=== PATIENT | male | born 1940 | race Caucasian/White ===

== ENCOUNTER 2020-02-27 20:58 | Emergency (ER) | payer OTHER ==
[2020-02-27] MEDS ORDERED: NA CHLORIDE 0.9% 500 ML ONE (22:03)
[2020-02-27 22:27] LABS: Absolute Lymphocytes (CBC) 3.5 K/uL (0.7-4.9); Basophils % 0.3 % (0-1.3); Hematocrit 34.5 % (39.6-49.0); Lymphocytes % 21.9 % (15.3-44.8); MPV 8.3 fL (7.6-11.3); RBC Red Blood Cell Count 4.02 M/uL (4.33-5.43)
--- NOTE | 2020-02-28 00:16 | ER ---
Nurse's Notes [facility] Name: Christopher Cano Age: 80 yrs Sex: Male : 1940 Arrival Date: 02/27/2020 Time: 21:02 Bed 19 Private MD: Diagnosis: Fever, unspecified Presentation: 02/26 21:09 Chief complaint: Patient states: "I am having a slight pain and I was running a slight jd3 fever. I took Tylenol and I feel better already. I am feeling better now, but I figured I would get checked out anyway.". Coronavirus screen: Proceed with normal triage. Patient denies a cough. Patient denies shortness of breath or difficulty breathing. Patient reports a measured and/or subjective temperature greater than 100.4F. Patient denies travel on a cruise ship or to a country the [facility] currently lists as an affected area. Patient denies contact with known and/or suspected case of COVID-19. Ebola Screen: Patient negative for fever greater than or equal to 101.5 degrees Fahrenheit, and additional compatible Ebola Virus Disease symptoms. Initial Sepsis Screen: Does the patient meet any 2 criteria? No. Patient's initial sepsis screen is negative. Does the patient have a suspected source of infection? No. Patient's initial sepsis screen is negative. Risk Assessment: Do you want to hurt yourself or someone else? Patient reports no desire to harm self or others. Onset of symptoms was February 27, 2020. 21:09 Method Of Arrival: Ambulatory jd3 21:09 Acuity: IVANIA 3 jd3 Historical: - Allergies: 21:13 No Known Allergies; jd3 - Home Meds: 21:13 warfarin 5 mg Oral tab [Active]; furosemide 20 mg Oral tab [Active]; losartan 50 mg jd3 oral tab [Active]; - PMHx: 21:13 heart problem; jd3 - PSHx: 21:13 Heart Surgery; Carpal Tunnel Repair; jd3 - Immunization history:: Adult Immunizations up to date. - Social history:: Smoking status: Patient denies any tobacco usage or history of. Screenin:58 Abuse screen: Denies threats or abuse. Nutritional screening: No deficits noted. jd3 Tuberculosis screening: No symptoms or risk factors identified. Fall Risk Ambulatory Aid- None/Bed Rest/Nurse Assist (0 pts). Gait- Normal/Bed Rest/Wheelchair (0 pts) Mental Status- Oriented to own ability (0 pts). Total Simental Fall Scale indicates No Risk (0-24 pts). Assessment: 21:56 General: Appears in no apparent distress. comfortable, Behavior is calm, cooperative, jd3 appropriate for age. Pain: Complains of pain in left lower quadrant Quality of pain is described as aching. Neuro: Level of Consciousness is awake, alert, obeys commands, Oriented to person, place, time, situation. Cardiovascular: Denies chest pain, Capillary refill < 3 seconds Patient's skin is warm and dry. Respiratory: Airway is patent Respiratory effort is even, unlabored, Respiratory pattern is regular, symmetrical, Denies cough, shortness of breath. GI: Abdomen is round non-distended, Abd is soft and non tender X 4 quads. Reports constipation, Patient currently denies diarrhea, nausea, vomiting. : No signs and/or symptoms were reported regarding the genitourinary system. EENT: No signs and/or symptoms were reported regarding the EENT system. Derm: Skin is intact, Skin is dry, Skin is normal, Skin temperature is warm. Musculoskeletal: Circulation, motion, and sensation intact. Range of motion: intact in all extremities. 23:20 Reassessment: Patient appears in no apparent distress at this time. No changes from jd3 previously documented assessment. Patient and/or family updated on plan of care and expected duration. Pain level reassessed. Patient is alert, oriented x 3, equal unlabored respirations, skin warm/dry/pink. 02/27 00:21 Reassessment: Patient appears in no apparent distress at this time. Patient and/or jd3 family updated on plan of care and expected duration. Pain level reassessed. Patient is alert, oriented x 3, equal unlabored respirations, skin warm/dry/pink. pt refused urinalysis Patient states feeling better. Vital Signs: 02/26 21:08 BP 156 / 71; Pulse 99; Resp 18 S; Temp 99.9(TE); Pulse Ox 97% on R/A; Weight 78.47 kg jd3 (R); Height 5 ft. 8 in. (172.72 cm) (R); Pain 3/10; 23:21 BP 146 / 85; Pulse 91; Resp 17 S; Temp 98.5(O); Pulse Ox 100% on R/A; jd3 21:08 Body Mass Index 26.30 (78.47 kg, 172.72 cm) jd3 ED Course: 21:02 Patient arrived in ED. bp1 21:11 Triage completed. jd3 21:13 Arm band placed on. jd3 21:28 Emelyn De Souza FNP-C [facility]. kb 21:28 John Pantoja MD is Attending Physician. kb 21:51 Roddy German RN is Primary Nurse. jd3 21:58 Patient has correct armband on for positive identification. Bed in low position. Call j light in reach. Side rails up X 1. Pulse ox on. NIBP on. 22:13 Inserted saline lock: 20 gauge in right antecubital area, using aseptic technique. jd3 Blood collected. 23:50 CT Abd/Pelvis - IV Contrast Only In Process Unspecified. EDMS 07 00:22 No provider procedures requiring assistance completed. IV discontinued, intact, jd3 bleeding controlled, No redness/swelling at site. Pressure dressing applied. Administered Medications: 02/26 22:20 Drug: NS 0.9% 500 ml Route: IV; Rate: bolus; Site: right antecubital; jd3 23:20 Follow up: Response: No adverse reaction; IV Status: Completed infusion; IV Intake: jd3 500ml Intake: 23:20 IV: 500ml; Total: 500ml. jd3 Outcome: 02/27 00:16 Discharge ordered by . kb 00:22 Discharged to home ambulatory. jd3 00:22 Condition: stable 00:22 Discharge instructions given to patient, Instructed on discharge instructions, follow up and referral plans. Demonstrated understanding of instructions, follow-up care. 00:22 Patient left the ED. jd3 Signatures: Dispatcher [employer] EDAZ Emelyn De Souza FNP-C FNP-Ckb Davies, Jonathon, RN RN j Snow Urrutia bp1 Corrections: (The following items were deleted from the chart) 02/26 23:30 23:30 Response: No adverse reaction; IV Status: Completed infusion; IV Intake: 500ml jd3jd3
--- NOTE | 2020-02-28 00:16 | EDPHYS ---
Physician Documentation [facility] Name: Christopher Cano Age: 80 yrs Sex: Male : 1940 Arrival Date: 02/27/2020 Time: 21:02 Bed 19 Private MD: ED Physician John Pantoja HPI: 02/26 23:49 This 80 yrs old Male presents to ER via Ambulatory with complaints of kb Headache, Fever. 23:49 The patient reports fever, that was measured at 102 degrees Fahrenheit, with an kb emergency department temperature of 99 degrees Fahrenheit. Onset: The symptoms/episode began/occurred today. Modifying factors: there are no obvious modifying factors. Associated signs and symptoms: Pertinent positives: abdominal pain, headache. Severity of symptoms: At their worst the symptoms were moderate in the emergency department the symptoms have improved. The patient has not experienced similar symptoms in the past. The patient has not recently seen a physician. Pt reports he had a slight headache with fever of 102, took tylenol and now fever is down and headache is gone. States he has had LLQ for a couple of days as well. Historical: - Allergies: 21:13 No Known Allergies; jd3 - Home Meds: 21:13 warfarin 5 mg Oral tab [Active]; furosemide 20 mg Oral tab [Active]; losartan 50 mg jd3 oral tab [Active]; - PMHx: 21:13 heart problem; jd3 - PSHx: 21:13 Heart Surgery; Carpal Tunnel Repair; jd3 - Immunization history:: Adult Immunizations up to date. - Social history:: Smoking status: Patient denies any tobacco usage or history of. ROS: 23:48 Cardiovascular: Negative for chest pain, palpitations, and edema, Respiratory: Negative kb for shortness of breath, cough, wheezing, and pleuritic chest pain, MS/Extremity: Negative for injury and deformity, Skin: Negative for injury, rash, and discoloration, Neuro: Negative for headache, weakness, numbness, tingling, and seizure. 23:48 Constitutional: Positive for fever, Negative for body aches, chills, fatigue, malaise, poor PO intake, weight loss. 23:48 Abdomen/GI: Positive for abdominal pain, Negative for nausea, vomiting, and diarrhea. Exam: 23:48 Constitutional: This is a well developed, well nourished patient who is awake, alert, kb and in no acute distress. Head/Face: Normocephalic, atraumatic. Chest/axilla: Normal chest wall appearance and motion. Nontender with no deformity. No lesions are appreciated. Cardiovascular: Regular rate and rhythm with a normal S1 and S2. No gallops, murmurs, or rubs. Normal PMI, no JVD. No pulse deficits. Respiratory: Lungs have equal breath sounds bilaterally, clear to auscultation and percussion. No rales, rhonchi or wheezes noted. No increased work of breathing, no retractions or nasal flaring. Back: No spinal tenderness. No costovertebral tenderness. Full range of motion. Skin: Warm, dry with normal turgor. Normal color with no rashes, no lesions, and no evidence of cellulitis. MS/ Extremity: Pulses equal, no cyanosis. Neurovascular intact. Full, normal range of motion. Neuro: Awake and alert, GCS 15, oriented to person, place, time, and situation. Cranial nerves II-XII grossly intact. Motor strength 5/5 in all extremities. Sensory grossly intact. Cerebellar exam normal. Normal gait. 23:48 Abdomen/GI: Inspection: abdomen appears normal, Bowel sounds: normal, in all quadrants, Palpation: soft, in all quadrants, mild abdominal tenderness, in the left lower quadrant. Vital Signs: 21:08 BP 156 / 71; Pulse 99; Resp 18 S; Temp 99.9(TE); Pulse Ox 97% on R/A; Weight 78.47 kg jd3 (R); Height 5 ft. 8 in. (172.72 cm) (R); Pain 3/10; 23:21 BP 146 / 85; Pulse 91; Resp 17 S; Temp 98.5(O); Pulse Ox 100% on R/A; jd3 21:08 Body Mass Index 26.30 (78.47 kg, 172.72 cm) jd3 MDM: 21:35 Patient medically screened. kb 23:45 Data reviewed: vital signs, nurses notes. Data interpreted: Pulse oximetry: on room air kb is 100 %. Interpretation: normal. 02/27 00:13 Counseling: I had a detailed discussion with the patient and/or guardian regarding: the kb historical points, exam findings, and any diagnostic results supporting the discharge/admit diagnosis, lab results, radiology results, the need for outpatient follow up, a family practitioner, to return to the emergency department if symptoms worsen or persist or if there are any questions or concerns that arise at home. 00:15 ED course: Pt refuses urinalysis and is ready to leave. Will discharge him to follow up kb with PCP. 02/26 21:50 Order name: Basic Metabolic Panel; Complete Time: 22:55 kb 02/26 21:50 Order name: CBC with Diff; Complete Time: 22:55 kb 02/26 21:50 Order name: IV Saline Lock; Complete Time: 21:51 kb 02/26 21:50 Order name: Labs collected and sent; Complete Time: 22:16 kb 02/26 21:50 Order name: CT Abd/Pelvis - IV Contrast Only kb Administered Medications: 02/26 22:20 Drug: NS 0.9% 500 ml Route: IV; Rate: bolus; Site: right antecubital; jd3 23:20 Follow up: Response: No adverse reaction; IV Status: Completed infusion; IV Intake: jd3 500ml Disposition: 02/27 05:36 Co-signature as Attending Physician, John Pantoja MD I agree with the assessment and chani plan of care. Disposition: 02/28/20 00:16 Discharged to Home. Impression: Fever, unspecified. - Condition is Stable. - Discharge Instructions: Fever, Adult, [id number]. - Medication Reconciliation Form, Thank You Letter, Antibiotic Education, Prescription Opioid Use form. - Follow up: Emergency Department; When: As needed; Reason: Worsening of condition. Follow up: Private Physician; When: 2 - 3 days; Reason: Recheck today's complaints, Continuance of care, Re-evaluation by your physician. Signatures: Dispatcher [employer] EDMS Emelyn De Souza, NET WASHER-C NET WASHER-John Naidu MD MD cha Davies, Jonathon RN RN jd3 Corrections: (The following items were deleted from the chart) 00:22 00:16 02/28/2020 00:16 Discharged to Home. Impression: Fever, unspecified. Condition is jd3 Stable. Discharge Instructions: Fever, Adult, [id number]. Forms are Medication Reconciliation Form, Thank You Letter, Antibiotic Education, Prescription Opioid Use. Follow up: Emergency Department; When: As needed; Reason: Worsening of condition. Follow up: Private Physician; When: 2 - 3 days; Reason: Recheck today's complaints, Continuance of care, Re-evaluation by your physician. kb
[2020-02-28 00:30] VITALS: BP 146/85; TEMP 98.5; O2SAT 100
--- NOTE | 2020-02-28 14:13 | RAD REPORT ---
EXAM DESCRIPTION: CT - Abdomen Pelvis W Contrast - 02/28/2020 8:26 am CLINICAL HISTORY: The patient is 80 years old and is Male; ABD PAIN TECHNIQUE: Axial computed tomography images of the abdomen and pelvis with intravenous contrast. S agittal and coronal reformatted images were created and reviewed. This CT exam was performed using one or more of the following dose reduction techniques: automated exposure control, adjustment of t he mA and/or kV according to patient size, and/or use of iterative reconstruction technique. COMPARISON: No relevant prior studies available. FINDINGS: ARTIFACTS: The exam is suboptimal secondary to motion artifact. LUNG BASES: Unremarkable. No mass. No consolidation. HEART: The heart is enlarged. ABDOMEN: LIVER: The liver is enlarged. GALLBLADDER AND BILE DUCTS: No calcified stones. No ductal dilation. PANCREAS: Fatty infiltration of the pancreas is present. SPLEEN: A splenule is present within the left upper quadrant. Several splenic granuloma are note d. ADRENALS: Unremarkable. No mass. KIDNEYS AND URETERS: Unremarkable. The kidneys enhance symmetrically. No obstructing renal or ure teral calculus is seen. No hydronephrosis or hydroureter. No perinephric fluid or stranding. STOMACH AND BOWEL: The stomach is empty. The small bowel is normal in caliber. A moderate amount stool is present throughout the colon. There is no mucosal thickening or evidence of bowel obstructi on. PELVIS: APPENDIX: The appendix is normal in caliber without surrounding inflammation. BLADDER: The bladder is well distended. REPRODUCTIVE: Unremarkable as visualized. ABDOMEN and PELVIS: INTRAPERITONEAL SPACE: Unremarkable. No free air. No significant fluid collection. 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 Multilevel d egenerative change of the spine is present. SOFT TISSUES: The soft tissues are normal. VASCULATURE: Atherosclerosis of the vasculature is present. No abdominal aortic aneurysm. LYMPH NODES: Shotty yamilet hepatis and retroperitoneal adenopathy is noted. IMPRESSION: No acute findings on this contrasted CT of the abdomen and pelvis to explain the patient's symptom s. Electronically signed by: Eunice Watts MD 02/27/2020 11:55 PM CDT Due to temporary technical issues with the PACS/Fluency reporting system, reports are being signed by the in house radiologist as a courtesy to ensure prompt reporting. The interpreting radiologist is f ully responsible for the content of the report.
== END 2020-02-28 00:22 | disposition home or self-care (01) ==
LOC: ER 20:58
DX: R50.9 Fever, unspecified (principal); R10.32 Left lower quadrant pain; Z79.01 Long term (current) use of anticoagulants
CPT/HCPCS: 85025; 80048; 36415; 74177; 96360; 99284; Q9967; J7040